=== PATIENT | male | born 1940 | race Caucasian/White ===

== ENCOUNTER 2016-07-10 10:20 | Inpatient (IN) | payer OTHER, BC ==
[2016-07-10 10:27] VITALS: BMI 35.4
--- NOTE | 2016-07-10 11:07 | PDOC ---
History of Present Illness <Apolonia Hendrix - Last Filed: 07/10/16 11:57> - General History Source: Patient Exam Limitations: No Limitations <Kellie Omer - Last Filed: 07/10/16 12:40> - General Chief Complaint: Chest Pain Stated Complaint: STERNUM, ABD PAIN (HX OF H.ATTACK) Time Seen by Provider: 07/10/16 11:05 - History of Present Illness Initial Comments: 07/10/16 11:57 The patient is a 76 year old male with significant past medical history of hypertension, hyperlipidemia, COPD, DC x2, stents x8, GERD who presents to the emergency department with abdominal pain for 1 day. The patient states the pain started yesterday and got worse throughout the day. He describes his pain as bandlike and wraps around his entire abdomen. He denies any associated nausea, vomiting, and diarrhea. The patient states that after he eats and drinks the pain radiates to his epigastric region. He reports some associated diaphoresis last night but this resolved. The pain is slightly different than the pain he has had with his DC in the past. The patient denies any shortness of breath or palpitations. The patient denies any recent illness, fevers, or chills. He denies sick contacts and recent travels. PMD: Dr. Yap Training Professional: Dr. Sanders (Apolonia Hendrix) Past History <Apolonia Hendrix - Last Filed: 07/10/16 11:57> - Past Medical History Cardiac Disorders: Yes (DC) COPD: Yes GI Disorders: Yes (GERD; HIATAL HERNIA;) HTN: Yes Hypercholesterolemia: Yes - Surgical History Abdominal Surgery: Yes (colon abcess) Cardiac Surgery: Yes (CARDIAC STENTING X 7) Orthopedic Surgery: Yes (LEFT KNEE ARTHROSCOPY) - Psycho/Social/Smoking Cessation Hx Anxiety: No Suicidal Ideation: No Smoking Status: Yes Smoking History: Former smoker Have you smoked in the past 12 months: No Number of Cigarettes Smoked Daily: 0 Information on smoking cessation initiated: No Hx Alcohol Use: Yes (social) Drug/Substance Use Hx: No <Kellie Omer - Last Filed: 07/10/16 12:40> - Past Medical History Allergies/Adverse Reactions: Allergies Allergy/AdvReac Type Severity Reaction Status Date / Time No Known Allergies Allergy Verified 07/10/16 10:27 Home Medications: Ambulatory Orders Aspirin [ASA -] 81 mg PO DAILY 11/14/12 Furosemide [Lasix -] 20 mg PO DAILY 11/14/12 Montelukast Na [Singulair -] 10 mg PO DAILY 11/14/12 Nebivolol HCl [Bystolic] 10 mg PO DAILY 11/14/12 Olmesartan/Hydrochlorothiazide [Benicar Hct 40-12.5MG Tab -] 1 tab PO DAILY 10/22 Pantoprazole Sodium 40 mg PO DAILY 11/14/12 Ropinirole HCl [Requip] 1.5 mg PO DAILY 11/14/12 Androgel 1.62 mg TP DAILY 08/31/13 Atorvastatin Ca [Lipitor] 40 mg PO HS 08/31/13 Clopidogrel Bisulfate [Plavix -] 75 mg PO DAILY 08/31/13 Review of Systems - Review of Systems Able to Perform ROS?: Yes <Apolonia Hendrix - Last Filed: 07/10/16 11:57> <Kellie Omer - Last Filed: 07/10/16 12:40> - Review of Systems Comments:: 07/10/16 11:57 GENERAL/CONSTITUTIONAL: No: fever, chills, weakness, loss of appetite. HEAD, EYES, EARS, NOSE AND THROAT: No: change in vision, ear pain, discharge, sore throat, throat swelling. CARDIOVASCULAR: No: chest pain, lightheadedness, palpitations, syncope RESPIRATORY: No: cough, shortness of breath, wheezing, hemoptysis, stridor. GASTROINTESTINAL: +Abdominal pain. No: nausea, vomiting, abdominal cramping, diarrhea, rectal bleeding, constipation. GENITOURINARY: No: dysuria, hematuria, frequency, urgency, flank pain. MUSCULOSKELETAL: No: back pain, neck pain, joint pain, muscle swelling or pain SKIN AND BREASTS: No: lesions, pallor, rash or easy bruising. NEUROLOGIC: No: headache, vertigo, paresthesias, weakness ENDOCRINE: No: unexplained weight gain or loss HEMATOLOGIC/LYMPHATIC: No: anemia, easy bleeding, swelling nodes (Apolonia Hendrix) *Physical Exam <Apolonia Hendrix - Last Filed: 07/10/16 11:57> <Kellie Omer - Last Filed: 07/10/16 12:40> - Vital Signs Last Vital Signs Temp Pulse Resp BP Pulse Ox 98.7 F 83 18 140/85 100 07/10/16 10:23 07/10/16 10:23 07/10/16 10:23 07/10/16 10:23 07/10/16 11:30 - Physical Exam Comments: 07/10/16 11:57 GENERAL: The patient is in no acute distress. HEAD: Normal with no signs of trauma. EYES: PERRLA, EOMI, sclera anicteric, conjunctiva clear. ENT: Ears normal, nares patent, oropharynx clear without exudates. Moist mucous membranes. NECK: Normal range of motion, supple without lymphadenopathy, JVD, or masses. LUNGS: Breath sounds equal, clear to auscultation bilaterally. No wheezes, and no crackles. HEART: Regular rate and rhythm, normal S1 and S2 without murmur, rub or gallop. ABDOMEN: Soft, nontender, normoactive bowel sounds. No guarding, no rebound. EXTREMITIES: Normal range of motion, no edema. No clubbing or cyanosis. No erythema, or tenderness. NEUROLOGICAL: Cranial nerves II through XII grossly intact. Normal speech. No focal neurological deficits. MUSCULOSKELETAL: Back non-tender to palpation, no CVA tenderness SKIN: Warm, Dry, normal turgor, no rashes or lesions noted. (Apolonia Hendrix) ED Treatment Course - LABORATORY CBC & Chemistry Diagram: 07/10/16 11:23 07/10/16 11:19 <Apolonia Hendrix - Last Filed: 07/10/16 11:57> - LABORATORY CBC & Chemistry Diagram: 07/10/16 11:23 07/10/16 11:19 <Kellie Omer - Last Filed: 07/10/16 12:40> - ADDITIONAL ORDERS Additional order review: Laboratory Results 07/10/16 07/10/16 11:23 11:19 INR 1.15 H Sodium 138 Potassium 4.2 Chloride 100 Carbon Dioxide 30 Anion Gap 8 BUN 18 Creatinine 1.1 D Creat Clearance w eGFR > 60 Random Glucose 105 D Calcium 8.5 Magnesium 2.1 Total Bilirubin 1.7 H D AST 11 L D ALT 20 D Alkaline Phosphatase 69 Creatine Kinase 92 Troponin I < 0.02 D Total Protein 6.2 L Albumin 3.4 Total Amylase 61 Lipase 172 07/10/16 11:23 RBC 5.14 MCV 89.2 MCHC 33.9 RDW 13.9 MPV 8.7 Neutrophils % 79.1 Lymphocytes % 11.7 D Monocytes % 8.1 Eosinophils % 0.6 Basophils % 0.5 - RADIOLOGY Radiology Studies Ordered: Category Date Time Status CHEST X-RAY PORTABLE* [RAD] Stat Radiology 07/10/16 11:19 Completed - Medications Given in the ED: ED Medications Discontinued Medications Generic Name Dose Route Start Last Admin Trade Name Freq PRN Reason Stop Dose Admin Aspirin 162 mg 07/10/16 11:19 07/10/16 12:00 Asa - PO 07/10/16 11:20 162 mg ONCE ONE Administration Medical Decision Making <Apolonia Hendrix - Last Filed: 07/10/16 11:57> <Kellie Omer - Last Filed: 07/10/16 12:40> - Medical Decision Making A portion of this note was documented by scribe services under my direction. I have reviewed the details of the note, within reason, and agree with the documentation with the following case summary and management plan written by me. Nursing documentation reviewed and incorporated into medical decision making This is a 76-year-old male with a history of coronary artery disease status post DC and stent 8 who presents emergency Department with nonspecific and diffuse abdominal pain which she states radiated up to his chest. No nausea, no vomiting, no diaphoresis. No exertional symptoms. Patient currently has no symptoms and she denies current chest pain. No radiation to the arms or back. Patient states he was able to tolerate cereal this morning with no nausea and no vomiting. Patient actually has no abdominal pain at this time. 07/10/16 12:02 Laboratory Tests 07/10/16 11:23 WBC 12.6 H D Hgb 15.5 Hct 45.8 Plt Count 180 Neutrophils % 79.1 Lymphocytes % 11.7 D 07/10/16 12:28 07/10/16 12:29 Laboratory Tests 07/10/16 07/10/16 11:19 11:23 INR 1.15 H BUN 18 Creatinine 1.1 D Creatine Kinase 92 Troponin I < 0.02 D Case reviewed with Dr. Sanders. Given patient's nonspecific symptoms and significant cardiac history we'll place him on observation Dr. Yap. Will place him on observation to telemetry 07/10/16 12:40 Laboratory Tests 07/10/16 11:19 Total Amylase 61 Lipase 172 (Kellie Omer) *DC/Admit/Observation/Transfer <Apolonia Hendrix - Last Filed: 07/10/16 11:57> - Discharge Dispostion Admit: Yes <Kellie Omer - Last Filed: 07/10/16 12:40> Diagnosis at time of Disposition: Chest pain Qualifiers: Chest pain type: unspecified Qualified Code(s): R07.9 - Chest pain, unspecified - Discharge Dispostion Condition at time of disposition: Stable Decision to Admit order Date/Time: Decision to Admit Order Category Date Time Status Decision to Admit to Hospital Routine Admission 07/10/16 12:30 Active - Referrals Referrals: Mode Yap MD [Primary Care Provider] - - Attestations Scribe Attestion: 07/10/16 11:31 Documentation prepared by Apolonia Hendrix, acting as biomedical engineer for Kellie Omer MD. (Apolonia Hendrix)
[2016-07-10] MEDS ORDERED: ASPIRIN 81 MG CHEWABLE TABLETS PO ONE (11:19)
[2016-07-10 11:34] LABS: BASOPHIL 0.5 % (0-2.0); EOSINOPHIL 0.6 % (0-4.5); MCH 30.3 pg (25.7-33.7); MCHC 33.9 g/dl (32.0-35.9); MEAN CELL VOLUME 89.2 fl (80-96); MEAN PLT VOLUME 8.7 fl (7.5-11.1); NEUTROPHILS 79.1 % (42.8-82.8); PLATELET COUNT 180 K/MM3 (134-434); RDW 13.9 % (11.9-15.9); WHITE BLOOD COUNT 12.6 K/mm3 (4.0-10.0)
[2016-07-10 11:59] LABS: ALBUMIN 3.4 g/dl (3.4-5.0); ANION GAP 8 (8-16); BILIRUBIN,TOTAL 1.7 mg/dL (0.2-1.0); CALCIUM 8.5 mg/dL (8.5-10.1); CO2 30 mmol/L (21-32); CREATININE 1.1 mg/dL (0.7-1.3); GLUCOSE,RANDOM 105 mg/dL (74-106); MAGNESIUM 2.1 mg/dL (1.8-2.4); SGOT/AST 11 U/L (15-37); SGPT/ALT 20 U/L (12-78); TOT PROT 6.2 g/dl (6.4-8.2)
[2016-07-10 12:02] LABS: INR 1.15 (0.82-1.09); PROTHROMBIN TIME (PATIENT) 12.7 SEC (9.98-11.88)
[2016-07-10 12:02] LABS: ALK PHOS 69 U/L (45-117); TROPONIN I < 0.02 ng/ml (0.00-0.05)
[2016-07-10] MEDS ORDERED: ASPIRIN 81 MG CHEWABLE TABLETS ONE (12:05)
--- NOTE | 2016-07-10 12:08 | CON.CARD ---
Consult Consult Specialty:: cardiology - History of Present Illness History of Present Illness: The patient is a 76 year old male with significant past medical history of hypertension, hyperlipidemia, COPD, DC x2, stents x8, GERD who presents to the emergency department with abdominal pain for 1 day. The patient states the pain started yesterday and got worse throughout the day. He describes his pain as bandlike and wraps around his entire abdomen. He denies any associated nausea, vomiting, and diarrhea. The patient states that after he eats and drinks the pain radiates to his epigastric region. He reports some associated diaphoresis last night but this resolved. The pain is slightly different than the pain he has had with his DC in the past. The patient denies any shortness of breath or palpitations. The patient denies any recent illness, fevers, or chills. He denies sick contacts and recent travels. - History Source History Provided By: Patient, Medical Record - Past Medical History Cardio/Vascular: Yes: CAD, HTN, Hyperlipdemia - Alcohol/Substance Use Hx Alcohol Use: Yes (social) - Smoking History Smoking history: Former smoker Have you smoked in the past 12 months: No Aproximately how many cigarettes per day: 0 Home Medications - Allergies Allergies/Adverse Reactions: Allergies Allergy/AdvReac Type Severity Reaction Status Date / Time No Known Allergies Allergy Verified 07/10/16 10:27 - Home Medications Home Medications: Ambulatory Orders Aspirin [ASA -] 81 mg PO DAILY 11/14/12 Furosemide [Lasix -] 20 mg PO DAILY 11/14/12 Montelukast Na [Singulair -] 10 mg PO DAILY 11/14/12 Nebivolol HCl [Bystolic] 10 mg PO DAILY 11/14/12 Olmesartan/Hydrochlorothiazide [Benicar Hct 40-12.5MG Tab -] 1 tab PO DAILY 10/22 Pantoprazole Sodium 40 mg PO DAILY 11/14/12 Ropinirole HCl [Requip] 1.5 mg PO DAILY 11/14/12 Androgel 1.62 mg TP DAILY 08/31/13 Atorvastatin Ca [Lipitor] 40 mg PO HS 08/31/13 Clopidogrel Bisulfate [Plavix -] 75 mg PO DAILY 08/31/13 Review of Systems - Review of Systems Constitutional: reports: No Symptoms Eyes: reports: No Symptoms HENT: reports: No Symptoms Neck: reports: No Symptoms Cardiovascular: reports: No Symptoms Gastrointestinal: reports: Abdominal Pain Genitourinary: reports: No Symptoms Breasts: reports: No Symptoms Reported Musculoskeletal: reports: No Symptoms Integumentary: reports: No Symptoms Neurological: reports: No Symptoms Endocrine: reports: No Symptoms Hematology/Lymphatic: reports: No Symptoms Psychiatric: reports: No Symptoms Vital Signs: Vital Signs Temperature 98.7 F 07/10/16 10:23 Pulse Rate 83 07/10/16 10:23 Respiratory Rate 18 07/10/16 10:23 Blood Pressure 140/85 07/10/16 10:23 O2 Sat by Pulse Oximetry (%) 100 07/10/16 11:30 Constitutional: Yes: Well Nourished, No Distress, Calm Eyes: Yes: WNL, Conjunctiva Clear, EOM Intact HENT: Yes: WNL, Atraumatic, Normocephalic Neck: Yes: WNL, Supple, Trachea Midline Respiratory: Yes: WNL, Regular, CTA Bilaterally Gastrointestinal: Yes: WNL, Normal Bowel Sounds Renal/: Yes: WNL Cardiovascular: Yes: WNL, Regular Rate and Rhythm Musculoskeletal: Yes: WNL Extremities: Yes: WNL Edema: LLE: 1+, RLE: 1+ Integumentary: Yes: WNL Neurological: Yes: WNL, Alert, Oriented ...Motor Strength: WNL Psychiatric: Yes: WNL, Alert, Oriented - Other Data Labs, Other Data: CBC, BMP 07/10/16 11:23 07/10/16 11:19 INR, PTT INR 1.15 (0.82-1.09) H 07/10/16 11:23 Troponin, BNP 07/10/16 11:19 Troponin I < 0.02 D Troponin, BNP 07/10/16 11:19 Troponin I < 0.02 D Imaging - Results Chest X-ray: Image Reviewed (no i/e) EKG: Image Reviewed (sr wnl) Problem List - Problems (1) Chest pain Code(s): R07.9 - CHEST PAIN, UNSPECIFIED Qualifiers: Chest pain type: unspecified Qualified Code(s): R07.9 - Chest pain, unspecified Assessment/Plan Abdominal pain PCI LAD 07/28/2014 Dr. Lake PCI of LAD and LCx and OM2 and OM3 01/08/2013 Dr. Lake rectal fistula repair CAD Claudication, intermittent COPD HTN Hyperlipidemia NSTEMI 11/2012 Obesity PCI of ostial LAD July 28, 2014 Dr. Lake Plan; echo r/o mi GI eval cont med rx check bnp
[2016-07-10 12:27] LABS: AMYLASE 61 U/L (25-115)
--- NOTE | 2016-07-10 13:56 | EKG ---
Test Reason : Blood Pressure : / mmHG Vent. Rate : 080 BPM Atrial Rate : 080 BPM P-R Int : 196 ms QRS Dur : 092 ms QT Int : 352 ms P-R-T Axes : 032 033 035 degrees QTc Int : 405 ms NORMAL SINUS RHYTHM NORMAL ECG WHEN COMPARED WITH ECG OF 14-NOV-2012 12:45, NO SIGNIFICANT CHANGE WAS FOUND Confirmed by PEPPER WALTER MD ([id number]) on 07/10/2016 1:56:32 PM Referred By: Confirmed By:PEPPER WALTER MD
[2016-07-10] MEDS ORDERED: PATIENT'S OWN MEDICATION (NON-FORMULARY) (Fluticasone Propionate [Flovent Diskus] 50 MCG) IH SCH (15:15)
[2016-07-10 17:01] LABS: TROPONIN I < 0.02 ng/ml (0.00-0.05)
[2016-07-10] MEDS ORDERED: MONTELUKAST NA 10 MG TABLET PO SCH (22:00)
[2016-07-10] MEDS ORDERED: PANTOPRAZOLE SODIUM 40 MG in SODIUM CHLORIDE 100 ML IVPB SCH (22:00)
[2016-07-10] MEDS ORDERED: ATORVASTATIN CA 40 MG TABLET (FP) PO SCH (22:00)
[2016-07-10] MEDS: PANTOPRAZOLE SODIUM 40 MG/100 ML PRE-DOCKED IVPB SCH (22:23)
[2016-07-11 07:23] LABS: BASOPHIL 0.5 % (0-2.0); MCH 30.3 pg (25.7-33.7); MCHC 34.1 g/dl (32.0-35.9); MEAN CELL VOLUME 88.7 fl (80-96); MEAN PLT VOLUME 9.2 fl (7.5-11.1); NEUTROPHILS 80.9 % (42.8-82.8); PLATELET COUNT 163 K/MM3 (134-434); RDW 14.1 % (11.9-15.9)
--- NOTE | 2016-07-11 07:26 | HP ---
Admitting History and Physical - Admission History of Present Illness: 76 year old male with significant past medical history of hypertension, hyperlipidemia, COPD, HI x2, stents x8, GERD who presents to the emergency department with abdominal pain for 1 day. The patient states the pain started yesterday and got worse throughout the day. He describes his pain as bandlike and wraps around his entire abdomen. He denies any associated nausea, vomiting, and diarrhea. The patient states that after he eats and drinks the pain radiates to his epigastric region. He reports some associated diaphoresis last night but this resolved. The pain is slightly different than the pain he has had with his HI in the past. The patient denies any shortness of breath or palpitations. The patient denies any recent illness, fevers, or chills. He denies sick contacts and recent travels. This am pt feels better - Past Medical History Cardiovascular: Yes: CAD (s/p stents), HTN, Hyperlipdemia, HI Pulmonary: Yes: COPD Gastrointestinal: Yes: GERD - Past Surgical History Past Surgical History: Yes: Stent - Smoking History Smoking history: Former smoker Have you smoked in the past 12 months: No Aproximately how many cigarettes per day: 0 - Alcohol/Substance Use Hx Alcohol Use: Yes (social) Home Medications - Allergies Allergies/Adverse Reactions: Allergies Allergy/AdvReac Type Severity Reaction Status Date / Time No Known Allergies Allergy Verified 07/10/16 10:27 - Home Medications Home Medications: Ambulatory Orders Aspirin [ASA -] 81 mg PO DAILY 11/14/12 Furosemide [Lasix -] 20 mg PO DAILY 11/14/12 Montelukast Na [Singulair -] 10 mg PO DAILY 11/14/12 Nebivolol HCl [Bystolic] 10 mg PO DAILY 11/14/12 Pantoprazole Sodium 40 mg PO DAILY 11/14/12 Atorvastatin Ca [Lipitor] 40 mg PO HS 08/31/13 Clopidogrel Bisulfate [Plavix -] 75 mg PO DAILY 08/31/13 Fluticasone Propionate [Flovent Diskus] 50 mcg IH ASDIR 07/10/16 Olmesartan Medoxomil [Benicar (Nf)] 40 mg PO DAILY 07/10/16 Review of Systems - Review of Systems Cardiovascular: reports: Chest Pain Respiratory: denies: SOB Gastrointestinal: reports: Abdominal Pain, Indigestion Genitourinary: reports: No Symptoms Physical Examination Vital Signs: Vital Signs Temperature 99 F 07/11/16 05:59 Pulse Rate 80 07/11/16 05:59 Respiratory Rate 18 07/11/16 05:59 Blood Pressure 148/75 07/11/16 05:59 O2 Sat by Pulse Oximetry (%) 96 07/10/16 22:00 Cardiovascular: Yes: Regular Rate and Rhythm Respiratory: Yes: Regular, CTA Bilaterally Gastrointestinal: Yes: Normal Bowel Sounds, Soft. No: Tenderness Imaging - Results X-ray: Report Reviewed EKG: Report Reviewed Problem List - Problems (1) Chest pain Assessment/Plan: FOLLOW CE CARDIO NOTED ECHO Code(s): R07.9 - CHEST PAIN, UNSPECIFIED Qualifiers: Chest pain type: unspecified Qualified Code(s): R07.9 - Chest pain, unspecified (2) CAD (coronary artery disease) Assessment/Plan: ABOVE Code(s): I25.10 - ATHSCL HEART DISEASE OF [place] CORONARY ARTERY W/O ANG PCTRS (3) HTN (hypertension) Assessment/Plan: SAME MEDS Code(s): I10 - ESSENTIAL (PRIMARY) HYPERTENSION (4) GERD (gastroesophageal reflux disease) Assessment/Plan: ON PPI Code(s): K21.9 - GASTRO-ESOPHAGEAL REFLUX DISEASE WITHOUT ESOPHAGITIS (5) Leukocytosis Assessment/Plan: REPEAT Code(s): D72.829 - ELEVATED WHITE BLOOD CELL COUNT, UNSPECIFIED
[2016-07-11 07:51] LABS: ALBUMIN 3.1 g/dl (3.4-5.0); ANION GAP 10 (8-16); BILIRUBIN,TOTAL 1.3 mg/dL (0.2-1.0); CALCIUM 8.3 mg/dL (8.5-10.1); CO2 27 mmol/L (21-32); CREATININE 0.9 mg/dL (0.7-1.3); GLUCOSE,RANDOM 129 mg/dL (74-106); SGOT/AST 9 U/L (15-37); SGPT/ALT 17 U/L (12-78)
[2016-07-11 07:54] LABS: ALK PHOS 67 U/L (45-117)
--- NOTE | 2016-07-11 09:05 | PN ---
Progress Note, Physician Chief Complaint: Pt ambulatory; no chest pain or dyspnea.; no abdominal pain presently. History of Present Illness: The patient is a 76 year old male with significant past medical history of hypertension, hyperlipidemia, COPD, OR x2, stents x8, GERD who presents to the emergency department with abdominal pain for 1 day. The patient states the pain started yesterday and got worse throughout the day. He describes his pain as bandlike and wraps around his entire abdomen. He denies any associated nausea, vomiting, and diarrhea. The patient states that after he eats and drinks the pain radiates to his epigastric region. He reports some associated diaphoresis last night but this resolved. The pain is slightly different than the pain he has had with his OR in the past. The patient denies any shortness of breath or palpitations. The patient denies any recent illness, fevers, or chills. He denies sick contacts and recent travels. PMD: Dr. 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 Sanders - Current Medication List Current Medications: Active Medications Aspirin (Asa -) 81 mg PO DAILY [facility] Atorvastatin Calcium (Lipitor -) 40 mg PO [facility] Last Admin: 07/10/16 22:24 Dose: 40 mg Clopidogrel Bisulfate (Plavix -) 75 mg PO DAILY [facility] Furosemide (Lasix -) 20 mg PO DAILY [facility] Montelukast Sodium (Singulair -) 10 mg PO [facility] Last Admin: 07/10/16 22:24 Dose: 10 mg Nebivolol (Bystolic -) 10 mg PO DAILY [facility] Non-Formulary Medication (Fluticasone Propionate [Flovent Diskus]) 50 mcg IH ASDIR [facility] Pantoprazole Sodium (Protonix 40mg Ivpb (Pre-Docked)) 40 mg IVPB BID [facility] Last Admin: 07/10/16 22:23 Dose: 40 mg Valsartan (Diovan -) 320 mg PO DAILY [facility] - Objective Vital Signs: Vital Signs Temperature 99 F 07/11/16 05:59 Pulse Rate 80 07/11/16 05:59 Respiratory Rate 18 07/11/16 05:59 Blood Pressure 148/75 07/11/16 05:59 O2 Sat by Pulse Oximetry (%) 96 07/10/16 22:00 Labs: CBC, BMP 07/11/16 05:35 07/11/16 05:35 INR, PTT INR 1.15 (0.82-1.09) H 07/10/16 11:23 Problem List - Problems (1) CAD (coronary artery disease) Assessment/Plan: TNI < 0.02 x 2 EKG: NSR; old IW OR ECHO: normal LVEF Stress MIBI negative for myocardial ischemia (2015). F/u lipids. From a cardiac standpoint, pt may be followed up as outpatient. Code(s): I25.10 - ATHSCL HEART DISEASE OF [place] CORONARY ARTERY W/O ANG PCTRS
[2016-07-11] MEDS: PANTOPRAZOLE SODIUM 40 MG/100 ML PRE-DOCKED IVPB SCH (09:23)
[2016-07-11 09:37] LABS: CHOLESTEROL 101 mg/dL (50-200); LDL CHOLESTEROL (ONLY SJRH) 42 mg/dL (5-100); TROPONIN I < 0.02 ng/ml (0.00-0.05)
[2016-07-11] MEDS ORDERED: ASPIRIN 81 MG CHEWABLE TABLETS PO SCH (10:00)
[2016-07-11] MEDS ORDERED: CLOPIDOGREL BISULFATE 75 MG TABLET (FP) PO SCH (10:00)
[2016-07-11] MEDS ORDERED: NEBIVOLOL 10 MG TABLET (FP) PO SCH (10:00)
[2016-07-11] MEDS ORDERED: VALSARTAN 160 MG TABLET (UD) PO SCH (10:00)
[2016-07-11] MEDS ORDERED: FUROSEMIDE 20 MG TABLET (FP) PO SCH (10:00)
--- NOTE | 2016-07-11 14:11 | EKG ---
Test Reason : Blood Pressure : / mmHG Vent. Rate : 081 BPM Atrial Rate : 081 BPM P-R Int : 188 ms QRS Dur : 090 ms QT Int : 358 ms P-R-T Axes : 047 037 028 degrees QTc Int : 415 ms NORMAL SINUS RHYTHM INFERIOR INFARCT , AGE UNDETERMINED ABNORMAL ECG WHEN COMPARED WITH ECG OF 10-JUL-2016 10:30, INFERIOR INFARCT IS NOW PRESENT Confirmed by JOE BOJORQUEZ MD ([id number]) on 07/11/2016 2:10:36 PM Referred By: JASON HOWARD Confirmed By:JOE BOJORQUEZ MD
--- NOTE | 2016-07-11 14:34 | PN ---
Progress Note (short form) - Note Progress Note: consult dictated
[2016-07-11 15:13] VITALS: BP 155/86; PULSE 74; TEMP 98.8
--- NOTE | 2016-07-11 18:33 | CONS ---
DATE OF CONSULTATION: DATE OF DICTATION: 07/11/2016 REQUESTING PHYSICIAN: Mode Yap MD The patient is a 76-year-old male admitted through [facility] for evaluation of abdominal pain. He states that his pain started on Friday. The pain was vague in nature in the mid abdomen and was sharp. He states drinking a eric smita, which worsened his symptoms. He described the pain as radiating to his left side and his right side, is in the mid abdomen and it was associated with a lot of belching and flatus. He took charcoal pills and Advil without relief. He denied any associated vomiting, food fear, melena, gross rectal bleeding. He was admitted. He came to the emergency room Friday morning, noted to have a white blood count of 12.6 and a bilirubin of 1.7 with otherwise normal liver chemistries. Amylase and lipase were unrevealing. His pain stopped shortly after he was admitted to the hospital. He has been eating and he denies any abdominal pain currently. He was last evaluated in August of 2013. That time was for evaluation of frequent belching, bloating, decreased appetite, and sensation of early satiety. These have not been chronic symptoms since that time. At that time he also tried charcoal pills, Tums, Fang-Deshler, and liquid antacids without any appreciable effect. He was taking pantoprazole 40 mg once daily and has been doing so chronically. He underwent upper endoscopy in August of 2013, performed by myself, that revealed reflux changes at the GE junction, fundic gland polyps in the stomach, and the duodenum appeared normal in appearance. Past medical history includes hypertension, hyperlipidemia, prostatitis, epididymitis, chronic EBV, GERD, hiatal hernia, hemorrhoids, right lower extremity neuropathy, restless legs syndrome for which he is followed by Dr. Villanueva obstructive sleep apnea, for which he uses a CPAP at night. He had a history of [place] in November of 2012. Past surgical history includes left knee arthroscopy surgery in May 2002, anal fistulectomy, tonsillectomy, cardiac stenting x7 in 2012. He also had stenting performed in 2014. He had bilateral cataract removal. 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 Former smoker, quit in 1971. Drinks beer on occasion. No history of intravenous drug abuse, illicit drugs. FAMILY HISTORY: He has no family history of colorectal cancer or other GI malignancies. Medications prior to admission include Bystolic, aspirin 81 mg once daily, pantoprazole 40 mg daily, Singulair, Lasix, Plavix 75 mg daily, Lipitor, Flovent, and Benicar. REVIEW OF SYSTEMS: He denies any chest pain or shortness of breath. He denies currently any nausea vomiting, dysphagia, odynophagia, rectal bleeding, changes in bowel habits. He did had chills prior to admission. He no longer has chills. He denies any lower extremity swelling. PHYSICAL EXAMINATION: General: Patient is found lying comfortably in his bed. He appeared to be in no apparent distress. Vital Signs: Temperature is 98.2. Pulse of 82. Blood pressure 156/78. Sclerae: Anicteric. Neck: Supple. Heart: Regular rate and rhythm. No murmurs are appreciated. Lungs: Clear to auscultation bilaterally. Abdomen: Nondistended. He had normoactive bowel sounds. It was soft. No hepatosplenomegaly was appreciated. No masses were palpated. No hernias detected. No tenderness was elicited. He had a negative Garcia's sign. Extremities: No lower extremity edema. Digital Rectal Exam: No external lesions. No masses were palpated. He had a trace amount of light brown stool in the rectal vault, which is guaiac negative, and he had a 2+ prostate. He is aware of his enlarged prostate. He had a chest x-ray performed, revealing no significant interval change or acute lung disease. IMPRESSION: A 76-year-old male with resolved abdominal pain and dyspepsia. I question if this is related to a self-limited gastroenteritis and he is currently asymptomatic without focal findings on my physical exam. He is also noted to be guaiac negative. I said that it was okay for him to be discharged home today. I have given him a followup in 1 week in office Friday, July 17, in office at 12:30 p.m. At that time we will repeat blood work and reassess how he has been feeling. I did advise that if the pain recurs in between that time, that he call my office and if severe, he go back to the emergency room. I did advise also that he start to wean off of proton pump inhibitor therapy starting with using it every other day and then every 3 days, and once daily on using ranitidine 150 mg once daily instead for GI prophylaxis and for his complaints of intermittent reflux. Other recommendations pending the patient's clinical course. I thank you for this consultative opportunity. NIKOLAS DESOUZA DO CD/[id number]
== END 2016-07-11 15:59 | disposition home or self-care (01) | DRG 303 ==
LOC: JER 10:20 → JERBED 12:30 → J4W 14:36 → OBSVTOIN 15:17
PROVIDERS: ADMIT Family Medicine; ATTEND Family Medicine
DX: I25.10 Atherosclerotic heart disease of native coronary artery without angina pectoris (principal); Z95.5 Presence of coronary angioplasty implant and graft; R07.9 Chest pain, unspecified; I25.2 Old myocardial infarction; K21.9 Gastro-esophageal reflux disease without esophagitis; I10 Essential (primary) hypertension; E78.5 Hyperlipidemia, unspecified; D72.829 Elevated white blood cell count, unspecified
CPT/HCPCS: 36415; 71010-TC; 80053; 80061; 82150; 82550; 83036; 83690; 83721; 83735; 83880; 84484; 85025; 85610; 93005; 93010; 93306-TC; 99285-25; G0378

== ENCOUNTER 2020-10-27 13:35 | Emergency (ER) | payer OTHER, BC ==
[2020-10-27 13:44] VITALS: BMI 37.9
[2020-10-27] MEDS ORDERED: MECLIZINE HCL 25 MG TABLET (FP) PO ONE (14:37)
[2020-10-27] MEDS ORDERED: MECLIZINE HCL 12.5 MG TABLET ONE (14:58)
[2020-10-27 15:34] LABS: BASO % 0.7 % (0-2.0); EOS % 0.1 % (0-4.5); HEMATOCRIT 44.7 % (35.4-49); HEMOGLOBIN 15.6 GM/dL (11.7-16.9); LYMPH % 7.2 % (8-40); MCH 31.2 pg (25.7-33.7); MCHC 34.9 g/dl (32.0-35.9); MEAN CELL VOLUME 89.3 fl (80-96); MEAN PLT VOLUME 8.7 fl (7.5-11.1); MONO % 5.1 % (3.8-10.2); NEUT % 86.9 % (42.8-82.8); PLATELET COUNT 155 10^3/uL (134-434); RDW 14.8 % (11.9-15.9); WHITE BLOOD COUNT 10.3 K/mm3 (4.0-10.0)
[2020-10-27 15:48] LABS: CHLORIDE 98 mmol/L (98-107); SODIUM 135 mmol/L (136-145)
[2020-10-27 15:50] LABS: ALBUMIN 3.2 g/dl (3.4-5.0); ANION GAP 6 MMOL/L (8-16); BLOOD UREA NITROGEN 16.1 mg/dL (7-18); CALCIUM 8.9 mg/dL (8.5-10.1); CO2 32 mmol/L (21-32); GLUCOSE,RANDOM 164 mg/dL (74-106)
[2020-10-27 15:53] LABS: CREATININE 0.9 mg/dL (0.55-1.3); SGOT/AST 25 U/L (15-37); SGPT/ALT 36 U/L (13-61)
[2020-10-27 15:55] LABS: BILIRUBIN,TOTAL 1.2 mg/dL (0.2-1)
[2020-10-27 15:56] LABS: ALK PHOS 65 U/L (45-117)
[2020-10-27 17:41] VITALS: BP 138/76; PULSE 84; TEMP 98.6
== END 2020-10-27 17:42 | disposition home or self-care (01) ==
LOC: MERGE 13:35 → JER 13:35
DX: R42 Dizziness and giddiness (principal)
CPT/HCPCS: 36415; 70450-TC; 80053; 82550; 84484; 85025; 93005; 93010; 99285-25